=== PATIENT | male | born 1970 | race Caucasian/White ===

== ENCOUNTER 2020-01-07 12:51 | Emergency (ER) | payer BC ==
--- NOTE | 2020-01-07 12:59 | EDM.PDOC ---
ED HPI GENERAL MEDICAL PROBLEM - General Chief Complaint: General Stated Complaint: DIZZINESS/HIGH BP Time Seen by Provider: 01/07/20 12:57 Source of Information: Reports: Patient, RN, RN Notes Reviewed History Limitations: Reports: No Limitations - History of Present Illness INITIAL COMMENTS - FREE TEXT/NARRATIVE: Pt presents to ER by POV with c/o feeling 'lightheaded and dizzy'. Symptoms began this morning shortly after he got to work. Denies loss of consciousness, chest pain, syncope, or palpitations. Pt states blood pressure at that time was 144/94, called his daughter who is a nurse who then spoke to Dr. Dang's nurse and they suggested he be seen here in ER. No complaints of pain. No dizziness at the present time. Pt denies chest pain, cough, shortness of breath , eye irritation/drainage, loss of taste or smell, red tongue, rash or skin lesions, abdominal pain, N/V/D, fevers, chills, recent travel, or known exposure to confirmed or suspected Covid-19 cases. Onset: Today, Sudden Duration: Resolved Prior to Arrival Location: Reports: Generalized Severity: Moderate Improves with: Reports: None Worsens with: Reports: None Associated Symptoms: Reports: No Other Symptoms - Related Data Allergies Allergy/AdvReac Type Severity Reaction Status Date / Time No Known Allergies Allergy Verified 01/07/20 13:07 Home Meds: Home Meds Metoprolol Succinate [Toprol XL] 25 mg PO DAILY 01/07/20 [History] Past Medical History Cardiovascular History: Reports: Hypertension Social & Family History - Family History Family Medical History: Noncontributory - Tobacco Use Smoking Status *Q: Former Smoker - Living Situation & Occupation Occupation: Employed ED ROS GENERAL - Review of Systems Review Of Systems: Comprehensive ROS is negative, except as noted in HPI. ED EXAM, DIZZINESS - Physical Exam Exam: See Below Exam Limited By: No Limitations General Appearance: Alert, WD/WN, No Apparent Distress Eye Exam: Bilateral Eye: EOMI, Normal Inspection, PERRL Ears: Normal External Exam, Normal Canal, Hearing Grossly Normal, Normal TMs Nose: Normal Inspection, Normal Mucosa, No Blood Throat/Mouth: Normal Inspection, Normal Lips, Normal Teeth, Normal Gums, Normal Oropharynx, Normal Voice, No Airway Compromise Head Exam: Atraumatic, Normocephalic Neck: Normal Inspection, Supple, Non-Tender, Full Range of Motion Respiratory/Chest: No Respiratory Distress, Lungs Clear, Normal Breath Sounds, No Accessory Muscle Use, Chest Non-Tender Cardiovascular: Normal Peripheral Pulses, Regular Rate, Rhythm, No Edema, No Gallop, No JVD, No Murmur, No Rub GI/Abdominal: Normal Bowel Sounds, Soft, Non-Tender, No Organomegaly, No Distention, No Abnormal Bruit, No Mass Neurological: Alert, Normal Mood/Affect, Normal Dorsiflexion, CN II-XII Intact, Normal Plantar Flexion, Normal Gait, No Motor/Sensory Deficits, Oriented x 3 Back Exam: Normal Inspection Extremities: Normal Inspection, Normal Range of Motion, Non-Tender, No Pedal Edema, Normal Capillary Refill Psychiatric: Normal Affect, Normal Mood Skin Exam: Warm, Dry, Intact, Normal Color, No Rash EKG INTERPRETATION EKG Date: 01/07/20 Time: 13:28 Rhythm: Other (Sinus Adilson) Rate (Beats/Min): 57 [place]: Normal P-Wave: Present QRS: Normal ST-T: Normal QT: Normal Comparison: NA - No Prior EKG Course - Vital Signs Last Recorded V/S: Last Vital Signs Temp 97.9 F 01/07/20 13:02 Pulse 60 01/07/20 13:02 Resp 18 01/07/20 13:02 BP 179/93 H 01/07/20 13:14 Pulse Ox 100 01/07/20 13:02 Orthostatic Blood Pressure [ 165/97 Standing] Orthostatic Blood Pressure [ 176/90 Sitting] Orthostatic Blood Pressure [ 166/91 Supine] Not orthostatic. - Orders/Labs/Meds Orders: Active Orders 24 hr Category Date Time Status EKG 12 Lead [EKG Documentation Completion] [RC] STAT Care 01/07/20 13:24 Active Heart Tones [RC] ASDIRECTED Care 01/07/20 12:53 Inactive Orthostatic Vital Signs [RC] ASDIRECTED Care 01/07/20 13:23 Active Chest 1V Frontal [CR] Stat Exams 01/07/20 13:24 Taken Labs: Laboratory Tests 01/07/20 01/07/20 01/07/20 Range/Units 13:33 13:33 13:33 WBC 4.4 L (5.0-10.0) 10^3/uL RBC 4.41 L (4.6-6.2) 10^6/uL Hgb 14.0 (14.0-18.0) g/dL Hct 41.8 (40.0-54.0) % MCV 94.8 (80-100) fL MCH 31.7 (27.0-34.0) pg MCHC 33.5 (33.0-35.0) g/dL Plt Count 254 (150-450) 10^3/uL Neut % (Auto) 62.2 (42.2-75.2) % Lymph % (Auto) 24.3 (20.5-50.1) % [place] % (Auto) 11.9 H (2-8) % Eos % (Auto) 1.1 (1.0-3.0) % Baso % (Auto) 0.5 (0.0-1.0) % D-Dimer, Quantitative < 100 (0-400) ng/mL Sodium 142 (136-145) mmol/L Potassium 4.0 (3.5-5.1) mmol/L Chloride 104 (98-107) mmol/L Carbon Dioxide 29 (21-32) mmol/L Anion Gap 13.0 (7-13) mEq/L BUN 11 (7-18) mg/dL Creatinine 1.07 (0.70-1.30) mg/dL Est Cr Clr Drug Dosing 87.97 mL/min Estimated GFR (MDRD) > 60 BUN/Creatinine Ratio 10.3 (No establ ref range) Glucose 98 (74-99) mg/dL Calcium 8.6 (8.5-10.1) mg/dL Total Bilirubin 0.7 (0.2-1.0) mg/dL AST 26 (15-37) U/L ALT 30 (16-63) U/L Alkaline Phosphatase 68 (46-116) U/L Troponin I < 0.017 (0.000-0.056) ng/mL Total Protein 6.8 (6.4-8.2) g/dL Albumin 3.7 (3.4-5.0) g/dL Globulin 3.1 Albumin/Globulin Ratio 1.2 TSH, Ultra Sensitive 1.78 (0.36-3.74) uIU/mL - Radiology Interpretation Free Text/Narrative:: XR Chest: no acute process, see Rad. report. Departure - Departure Time of Disposition: 14:34 Disposition: Home, Self-Care 01 Condition: Good Clinical Impression: Dehydration, Hypertension not at goal, Dizziness - Discharge Information *PRESCRIPTION DRUG MONITORING PROGRAM REVIEWED*: Not Applicable *COPY OF PRESCRIPTION DRUG MONITORING REPORT IN PATIENT TRISTAN: Not Applicable Instructions: Dehydration, Adult, [id number], Hypertension, Adult, Easy-to- Read, Dizziness, [id number] Forms: ED Department Discharge Additional Instructions: Drink plenty of water. Continue your Metoprolol as prescribed. Follow up in clinic with Dr. Dang Sunday or Sunday, January 08 or for blood pressure recheck. May return to work tomorrow. Sepsis Event Note - Focused Exam Vital Signs: Vital Signs Temp Pulse Resp BP Pulse Ox 01/07/20 13:14 179/93 H 01/07/20 13:02 97.9 F 60 18 197/97 H 100 Date Exam was Performed: 01/07/20 Time Exam was Performed: 14:30 - My Orders Last 24 Hours: My Active Orders 01/07/20 12:53 Heart Tones [RC] ASDIRECTED 01/07/20 13:23 Orthostatic Vital Signs [RC] ASDIRECTED 01/07/20 13:24 EKG 12 Lead [EKG Documentation Completion] [RC] STAT Chest 1V Frontal [CR] Stat - Assessment/Plan Last 24 Hours: My Active Orders 01/07/20 12:53 Heart Tones [RC] ASDIRECTED 01/07/20 13:23 Orthostatic Vital Signs [RC] ASDIRECTED 01/07/20 13:24 EKG 12 Lead [EKG Documentation Completion] [RC] STAT Chest 1V Frontal [CR] Stat
[2020-01-07 14:28] LABS: CHLORIDE,CL 104 mmol/L (98-107); SODIUM,NA 142 mmol/L (136-145)
--- NOTE | 2020-01-07 15:41 | CR ---
EXAMINATION: Chest 1V Frontal SEX: Male AGE: 49 years CLINICAL HISTORY: 49-year-old hypertensive male near syncope episode. INTERPRETATION: Negative. 1. Normal cardiac silhouette and left-sided aortic arch. Magaly thorax unremarkable this AP projection (external secured entrance monitor leads). 2. No pulmonary vascular congestion, cephalization of vascular flow, alveolar edema or dependent effusion. 3. No lung mass or hilar lymphadenopathy. Midline tracheal bronchial airway unremarkable. 4. No focal lobar infiltrate, atelectasis or collapse. 5. No pneumothorax or pneumomediastinum. No free subdiaphragmatic air. CONCLUSION:
== END 2020-01-07 14:47 | disposition home or self-care (01) ==
LOC: DL.ED 12:51
DX: E86.0 Dehydration (principal); I10 Essential (primary) hypertension; Z79.899 Other long term (current) drug therapy
CPT/HCPCS: 36415; 71045; 80053; 84443; 84484; 85025; 85379; 93005; 99284-25